=== PATIENT | female | born 1955 | race Caucasian/White ===

== ENCOUNTER 2024-02-29 12:07 | Outpatient (CLI) | payer MEDICARE, SELFPAY ==
--- NOTE | ~2024-02-29 | US_ITS ---
EXAMINATION: US FNA w image guidance, US FNA additional DATE: 02/29/2024 13:56 (accession [id number]), 03/01/2024 08:15 (accession [id number]) INDICATION: Thyroid nodules TECHNIQUE: A time-out was performed to verify the patient's name, date of , and procedure to be performed . The procedure and its benefits and risks were discussed with the patient. Risks specifically discus sed included bleeding and infection. The patient understood the risks and agreed to proceed. The neck was prepped and draped in the usual sterile manner. 6 mL 1% lidocaine was used for local anesthesia . Attention was first turned to the right thyroid nodule. 7 passes were made with a 25G needle into the lesion. Appropriate needle location was documented with continuous sonographic guidance. Attenti on was then turned to the nodule at the thyroid isthmus. An additional 6 passes were made with a 20 5 G needle into the lesion again with continuous sonographic guidance. A sterile bandage was applied. There were no immediate complications. FINDINGS: Grayscale ultrasound images demonstrate biopsy needles advanced into a 2.3 x 2.0 cm solid right thyro id mass. Subsequent images demonstrate the biopsy needle advanced into a smaller 9 mm nodule at the t hyroid isthmus. IMPRESSION: 1. Successful ultrasound-guided fine needle aspiration of a 2.3 cm right thyroid mass. 2. Successful ultrasound-guided fine-needle aspiration of a 9 mm nodule at the thyroid isthmus. Reviewed, dictated and finalized at location A. [facility] IMPRESSION: 1. Successful ultrasound-guided fine needle aspiration of a 2.3 cm right thyro id mass. 2. Successful ultrasound-guided fine-needle aspiration of a 9 mm nodule at the thyroid isthmus.
== END 2024-02-29 12:08 | disposition home or self-care (01) ==
PROVIDERS: PCP Internal Medicine; Visit Provider Internal Medicine
DX: E04.1 Nontoxic single thyroid nodule (principal)
CPT/HCPCS: 10005; 10006; 88172; 88173; 88177; 88305